=== PATIENT | female | born 1990 | race Caucasian/White ===

== ENCOUNTER 2021-11-09 09:55 | Outpatient (CLI) | payer MEDICAID | END 2021-11-09 20:06 | disposition home or self-care (01) | LOC: MUS 09:55 | PROVIDERS: ATTEND Obstetrics & Gynecology | DX: O32.1XX0 Maternal care for breech presentation, not applicable or unspecified (principal); O09.893 Supervision of other high risk pregnancies, third trimester; O24.414 Gestational diabetes mellitus in pregnancy, insulin controlled; Z3A.29 29 weeks gestation of pregnancy | CPT/HCPCS: 76805 ==

== ENCOUNTER 2021-12-18 09:50 | Inpatient (IN) | payer OTHER ==
[~2021-12-18] VITALS: Ht 170.2 cm; Wt 102.1 kg
[2021-12-18] MEDS ORDERED: ONDANSETRON 4 MG/2 ML VIAL IVP PRN (10:15)
[2021-12-18 10:27] VITALS: BP 119/72
[2021-12-18] MEDS ORDERED: FERR325E14 PO (10:50)
[2021-12-18] MEDS ORDERED: PNV91TAB8 PO (10:50)
[2021-12-18] MEDS ORDERED: OSC500 PO (10:50)
[2021-12-18] MEDS ORDERED: PANTOPRAZOLE 40 MG INJ VIAL ONE (11:58)
[2021-12-18] MEDS ORDERED: PANTOPRAZOLE 40 MG INJ VIAL IVP SCH (12:02)
[2021-12-18 13:00] LABS: BASOPHILS % (AUTO) 0.3 % (0.0-2.0); EOSINOPHILS # (AUTO) 0.1 K/uL (0-0.4); EOSINOPHILS % (AUTO) 1.5 % (0.0-4.0); HEMATOCRIT 27.9 % (36-48); HEMOGLOBIN 9.4 g/dL (12.0-16.0); LYMPHOCYTES # (AUTO) 1.3 K/uL (2.5-16.5); LYMPHOCYTES % (AUTO) 16.8 % (20.5-51.1); MEAN CORPUSCULAR HEMOGLOBIN 23 pg (27-31); MEAN CORPUSCULAR HGB CONC 34 g/dL (33-37); MEAN CORPUSCULAR VOLUME 69.7 fL (80-94); MONOCYTES # (AUTO) 0.5 K/uL (0.8-1.0); MONOCYTES % (AUTO) 6.9 % (1.7-9.3); NEUTROPHILS # (AUTO) 5.6 K/uL (1.8-7.7); NEUTROPHILS % (AUTO) 74.5 % (42.2-75.2); PLATELET COUNT (AUTO) 270 K/uL (140-450); RED BLOOD CELL COUNT(AUTO) 4.01 MIL/uL (4.20-5.40); RED CELL DISTRIBUTION WIDTH 14.9 % (11.6-13.7); WHITE BLOOD COUNT (AUTO) 7.5 K/uL (4.8-10.8)
[2021-12-18 13:07] LABS: APPEARANCE,URINE HAZY (CLEAR); BILIRUBIN,URINE 1+ (NEGATIVE); BLOOD, URINE NEGATIVE (NEGATIVE); COLOR,URINE YELLOW (YELLOW); LEUKOCYTE ESTERASE ,URINE NEGATIVE (NEGATIVE); NITRITE, URINE POSITIVE (NEGATIVE); UGLUCOSE 1+ (NEGATIVE)
[2021-12-18 13:10] LABS: ANION GAP 15.6 (8-16); CREATININE 0.7 mg/dL (0.6-1.3); POTASSIUM 3.6 mmol/L (3.5-5.1); TOTAL BILIRUBIN 0.2 mg/dL (0.0-1.0)
[2021-12-18 13:23] LABS: RBC,URINE 0-5 /HPF (0-5)
[2021-12-18] MEDS: LACTATED RINGERS 1,000 ML IV SCH (18:23)
[2021-12-18] MEDS ORDERED: BETAMETH ACET/BETAMETH NA PH 30 MG/5 ML VIAL IM ONE ×2 (19:30→19:32)
[2021-12-18] MEDS: METOCLOPRAMIDE 10 MG/2 ML INJ VIAL IVP SCH (20:00)
[2021-12-18] MEDS ORDERED: INSULIN NPH HUM/REG INSULIN HM 100 UNIT/ML 10 ML VIAL SUBQ SCH (21:00)
[2021-12-18] MEDS ORDERED: METOCLOPRAMIDE 10 MG/2 ML INJ VIAL IVP SCH (21:00)
[2021-12-18] MEDS ORDERED: NIFEdipine 10 MG CAPLF PO SCH (23:15)
[2021-12-18] MEDS ORDERED: NIFEdipine 10 MG CAPLF ONE (23:20)
[2021-12-19] MEDS: PANTOPRAZOLE 40 MG INJ VIAL IVP SCH ×2 (00:02→11:53)
[2021-12-19] MEDS: LACTATED RINGERS 1,000 ML IV SCH ×3 (01:17→15:32)
[2021-12-19] MEDS: METOCLOPRAMIDE 10 MG/2 ML INJ VIAL IVP SCH ×3 (03:58→20:07)
[2021-12-19] MEDS ORDERED: TERBUTALINE 1 MG/ML VIAL SUBQ ONE (05:10)
[2021-12-19] MEDS ORDERED: TERBUTALINE 1 MG/ML VIAL SUBQ SCH (05:10)
[2021-12-19] MEDS: NIFEdipine 10 MG CAPLF PO SCH ×3 (05:12→16:58)
[2021-12-19 12:25] LABS: HEMATOCRIT 28.4 % (36-48); HEMOGLOBIN 9.3 g/dL (12.0-16.0)
[2021-12-19 12:43] LABS: CARBON DIOXIDE 18.1 mmol/L (21-32); CREATININE 0.7 mg/dL (0.6-1.3); POTASSIUM 4.1 mmol/L (3.5-5.1); TOTAL BILIRUBIN 0.2 mg/dL (0.0-1.0)
[2021-12-19] MEDS ORDERED: BETAMETH ACET/BETAMETH NA PH 30 MG/5 ML VIAL IM ONE (19:00)
== END 2021-12-19 20:20 | disposition home or self-care (01) | DRG 566 ==
LOC: MLD 09:50 → MFCC 10:10 → OBSVTOIN 10:46
PROVIDERS: ADMIT Obstetrics & Gynecology; ATTEND Obstetrics & Gynecology
DX: O99.613 Diseases of the digestive system complicating pregnancy, third trimester (principal); K92.0 Hematemesis; O24.414 Gestational diabetes mellitus in pregnancy, insulin controlled; Z20.822 Contact with and (suspected) exposure to COVID-19; Z83.3 Family history of diabetes mellitus; Z3A.34 34 weeks gestation of pregnancy
CPT/HCPCS: 36415; 76817; 80053; 81001; 82948; 85018; 85025; 87086; C9113; J0702; J1815; J2765; J3105; J7120; Q0092

== ENCOUNTER 2022-11-05 11:15 | Observation (INO) | payer OTHER ==
[~2022-11-05] VITALS: Ht 170.2 cm; Wt 103.4 kg
[~2022-11-05 11:15] MED LIST: FERR325E14 PO; OSC500 PO; PNV91TAB8 PO
[2022-11-05] MEDS ORDERED: LACTATED RINGERS 1,000 ML IV SCH (11:40)
[2022-11-05] MEDS ORDERED: MAG SULF 20 GM/H2O PREMIX DRIP 500 ML IV PRN (11:40)
[2022-11-05] MEDS ORDERED: MAG SULF 2000 MG/WATER PREMIX 100 ML IV SCH (11:40)
[2022-11-05 12:05] LABS: BASOPHILS % (AUTO) 0.4 % (0.0-2.0); EOSINOPHILS % (AUTO) 0.6 % (0.0-4.0); HEMATOCRIT 31.2 % (36-48); LYMPHOCYTES # (AUTO) 1.3 K/uL (2.5-16.5); LYMPHOCYTES % (AUTO) 18.7 % (20.5-51.1); MEAN CORPUSCULAR HEMOGLOBIN 22 pg (27-31); MEAN CORPUSCULAR HGB CONC 32 g/dL (33-37); MEAN CORPUSCULAR VOLUME 67.7 fL (80-94); MONOCYTES # (AUTO) 0.5 K/uL (0.8-1.0); MONOCYTES % (AUTO) 7.6 % (1.7-9.3); NEUTROPHILS # (AUTO) 4.9 K/uL (1.8-7.7); NEUTROPHILS % (AUTO) 72.7 % (42.2-75.2); PLATELET COUNT (AUTO) 264 K/uL (140-450); RED BLOOD CELL COUNT(AUTO) 4.61 MIL/uL (4.20-5.40); RED CELL DISTRIBUTION WIDTH 16.2 % (11.6-13.7); WHITE BLOOD COUNT (AUTO) 6.8 K/uL (4.8-10.8)
[2022-11-05 12:08] LABS: BILIRUBIN,URINE 1+ (NEGATIVE); BLOOD, URINE 3+ (NEGATIVE); LEUKOCYTE ESTERASE ,URINE 2+ (NEGATIVE); NITRITE, URINE NEGATIVE (NEGATIVE); PROTEIN,URINE 1+ (NEGATIVE); UGLUCOSE TRACE (NEGATIVE)
[2022-11-05 12:13] LABS: APPEARANCE,URINE CLOUDY (CLEAR)
[2022-11-05 12:14] LABS: COLOR,URINE AMBER (YELLOW)
[2022-11-05] MEDS ORDERED: BETAMETH ACET/BETAMETH NA PH 30 MG/5 ML VIAL IM SCH (12:30)
[2022-11-05 12:31] LABS: MAGNESIUM 1.5 mg/dL (1.8-2.4)
[2022-11-05 12:34] LABS: ALBUMIN 2.2 g/dL (3.4-5.0); ANION GAP 16.7 (8-16); CALCIUM 8.3 mg/dL (8.5-10.1); CARBON DIOXIDE 20.7 mmol/L (21-32); CREATININE 0.8 mg/dL (0.6-1.3); POTASSIUM 3.4 mmol/L (3.5-5.1); TOTAL BILIRUBIN 0.3 mg/dL (0.0-1.0); TOTAL PROTEIN, SERUM 6.7 g/dL (6.4-8.2); URIC ACID 4.7 mg/dL (2.6-7.2)
[2022-11-05 12:37] LABS: ICTOTEST NEGATIVE (NEGATIVE)
[2022-11-05 12:38] LABS: BACTERIA,URINE FEW /HPF (None Seen); RBC,URINE 11-20 (MOD) /HPF (0-5)
[2022-11-05 12:39] LABS: SQUAMOUS EPITHELIAL CELL,UR 4-10 (MOD) /LPF (0-3 (FEW))
[2022-11-05 12:46] VITALS: BP 127/75; PULSE 96; RESP 18; TEMP 98.1
[2022-11-05 12:48] LABS: URINE TOTAL PROTEIN 177.9 mg/dL (0-12)
[2022-11-05 12:49] LABS: URINE TPRO CREAT RATIO 0.5 (0-0.20)
[2022-11-05 13:07] LABS: INR 0.9 (0.8-1.2); PARTIAL THROMBOPLASTIN TIME 25.2 secs (22-35.6); PROTHROMBIN TIME 9.5 secs (10.8-13.4)
== END 2022-11-05 19:40 | disposition home or self-care (01) ==
LOC: MLD 11:15
PROVIDERS: ADMIT Obstetrics & Gynecology; ATTEND Obstetrics & Gynecology
DX: O46.93 Antepartum hemorrhage, unspecified, third trimester (principal); Z20.822 Contact with and (suspected) exposure to COVID-19; O60.03 Preterm labor without delivery, third trimester; Z3A.34 34 weeks gestation of pregnancy
CPT/HCPCS: 36415; 76805; 76817; 80053; 81001; 82570; 83735; 84550; 85025; 85384; 85610; 85730; 86886; 86900; 86901; 87086; 87426; 96365; 96366; 96372; G0378; J0702; J3475; Q0092

== ENCOUNTER 2022-11-06 12:42 | Observation (INO) | payer OTHER ==
[~2022-11-06] VITALS: Ht 170.2 cm; Wt 103.4 kg
[2022-11-06] MEDS ORDERED: BETAMETH ACET/BETAMETH NA PH 30 MG/5 ML VIAL IM ONE (13:00)
[2022-11-06 13:07] VITALS: BP 125/72; PULSE 95; RESP 18; TEMP 97.8
== END 2022-11-06 13:37 | disposition home or self-care (01) ==
LOC: MLD 12:42
PROVIDERS: ADMIT Obstetrics & Gynecology; ATTEND Obstetrics & Gynecology
DX: O26.893 Other specified pregnancy related conditions, third trimester (principal); R10.9 Unspecified abdominal pain; O99.891 Other specified diseases and conditions complicating pregnancy; M54.9 Dorsalgia, unspecified; Z3A.35 35 weeks gestation of pregnancy
CPT/HCPCS: 96372; G0378; J0702; 59025; 81000

== ENCOUNTER 2022-11-25 10:09 | Inpatient (IN) | payer OTHER ==
[~2022-11-25] VITALS: Ht 170.2 cm; Wt 104.3 kg
[2022-11-25] MEDS ORDERED: METHYLERGONOVINE 0.2 MG/ML AMP IM PRN ×3 (10:20→17:35)
[2022-11-25] MEDS ORDERED: CITRIC ACID/SODIUM CITRATE 30 ML UDC PO SCH (10:20)
[2022-11-25] MEDS ORDERED: CARBOPROST 250 MCG/ML AMP IM PRN ×2 (10:20→17:35)
[2022-11-25 10:47] LABS: BASOPHILS % (AUTO) 0.7 % (0.0-2.0); EOSINOPHILS % (AUTO) 0.2 % (0.0-4.0); HEMATOCRIT 33.9 % (36-48); HEMOGLOBIN 10.9 g/dL (12.0-16.0); LYMPHOCYTES # (AUTO) 1.4 K/uL (2.5-16.5); LYMPHOCYTES % (AUTO) 23.2 % (20.5-51.1); MEAN CORPUSCULAR HEMOGLOBIN 21 pg (27-31); MEAN CORPUSCULAR HGB CONC 32 g/dL (33-37); MEAN CORPUSCULAR VOLUME 66.7 fL (80-94); MONOCYTES # (AUTO) 0.4 K/uL (0.8-1.0); MONOCYTES % (AUTO) 6.6 % (1.7-9.3); NEUTROPHILS # (AUTO) 4.1 K/uL (1.8-7.7); NEUTROPHILS % (AUTO) 69.3 % (42.2-75.2); PLATELET COUNT (AUTO) 275 K/uL (140-450); RED BLOOD CELL COUNT(AUTO) 5.08 MIL/uL (4.20-5.40); RED CELL DISTRIBUTION WIDTH 17.5 % (11.6-13.7)
[2022-11-25 10:53] LABS: APPEARANCE,URINE CLEAR (CLEAR); BILIRUBIN,URINE NEGATIVE (NEGATIVE); BLOOD, URINE NEGATIVE (NEGATIVE); COLOR,URINE YELLOW (YELLOW); LEUKOCYTE ESTERASE ,URINE NEGATIVE (NEGATIVE); NITRITE, URINE NEGATIVE (NEGATIVE); PROTEIN,URINE 1+ (NEGATIVE); UGLUCOSE 3+ (NEGATIVE); UROBILINOGEN,URINE 0.2 EU/dL (0.2 - 1)
[2022-11-25] MEDS: LACTATED RINGERS 1,000 ML IV SCH ×2 (11:01→13:16)
[2022-11-25 11:07] LABS: INR 0.87 (0.8-1.2); PARTIAL THROMBOPLASTIN TIME 25.5 secs (22-35.6); PROTHROMBIN TIME 9.2 secs (10.8-13.4)
[2022-11-25 11:09] LABS: ALBUMIN 2.3 g/dL (3.4-5.0); ANION GAP 14.4 (8-16); CALCIUM 9.3 mg/dL (8.5-10.1); CARBON DIOXIDE 22.7 mmol/L (21-32); CREATININE 0.7 mg/dL (0.6-1.3); POTASSIUM 4.1 mmol/L (3.5-5.1); TOTAL BILIRUBIN 0.3 mg/dL (0.0-1.0); TOTAL PROTEIN, SERUM 7.4 g/dL (6.4-8.2)
[2022-11-25 11:19] LABS: AMPHETAMINE, URINE NEGATIVE ng/ml (NEG <=1000); BARBITURATE, URINE NEGATIVE ng/ml (NEG <=200); BENZODIAZEPINE, URINE NEGATIVE ng/mL (NEG <=200); CANNABINOID, URINE NEGATIVE ng/mL (NEG <=50); COCAINE, URINE NEGATIVE ng/mL (NEG <=300); OPIATE, URINE NEGATIVE ng/mL (NEG <=2000); PHENCYCLIDINE SCREEN,URINE NEGATIVE ng/mL (NEG <=25)
[2022-11-25 11:28] LABS: RBC,URINE 0-5 /HPF (0-5)
[2022-11-25 11:29] LABS: BACTERIA,URINE FEW /HPF (None Seen); MUCUS,URINE None Seen /LPF (None Seen); SQUAMOUS EPITHELIAL CELL,UR 4-10 (MOD) /LPF (0-3 (FEW)); TRICHOMONAS,URINE None Seen /HPF (None Seen); WBC,URINE 0-5 /HPF (0-5); WHITE BLOOD CELL CASTS,URINE None Seen /LPF (None Seen); YEAST,URINE None Seen /HPF (None Seen)
[2022-11-25] MEDS ORDERED: ceFAZolin 2,000 MG VIAL ONE (12:52)
[2022-11-25] MEDS ORDERED: INSULIN REGULAR, HUMAN 100 UNIT/ML VIAL SUBQ ONE (15:40)
[2022-11-25] MEDS ORDERED: MORPHINE PRES FREE 10 MG/10 ML AMP IV ONE (16:30)
[2022-11-25] MEDS ORDERED: ONDANSETRON 4 MG/2 ML VIAL IVP ONE (16:33)
[2022-11-25] MEDS ORDERED: KETOROLAC 30 MG/ML VIAL IVP ONE (16:33)
[2022-11-25] MEDS ORDERED: ONDANSETRON 4 MG/2 ML VIAL IVP PRN ×3 (17:20→17:35)
[2022-11-25] MEDS ORDERED: NALBUPHINE 10 MG/ML AMP IVP PRN ×3 (17:20→17:35)
[2022-11-25] MEDS ORDERED: diphenhydrAMINE 50 MG/ML VIAL IVP PRN ×3 (17:20→17:35)
[2022-11-25] MEDS ORDERED: NALOXONE 0.4 MG/ML VIAL IVP PRN ×6 (17:20→17:35)
[2022-11-25] MEDS ORDERED: METOCLOPRAMIDE 10 MG/2 ML INJ VIAL IVP PRN (17:25)
[2022-11-25] MEDS ORDERED: oxyCODONE/APAP 5/325 MG 1 TAB TAB PO PRN (17:35)
[2022-11-25] MEDS ORDERED: OXYTOCIN 10 UNITS in LACTATED RINGERS 1,000 ML IV SCH (17:35)
[2022-11-25] MEDS ORDERED: LACTATED RINGERS 1,000 ML IV SCH (17:35)
[2022-11-25] MEDS ORDERED: HYDROmorphone 1 MG/ML AMP IVP PRN (17:35)
[2022-11-25] MEDS ORDERED: OXYTOCIN 20 UNITS in LACTATED RINGERS 1,000 ML IV SCH ×4 (17:35)
[2022-11-25] MEDS ORDERED: GENTAMICIN PER PHARMACY MC PRN (17:35)
[2022-11-25] MEDS ORDERED: MEASLES, MUMPS, AND RUBELLA 1 VIAL SQVAC ONE (17:35)
[2022-11-25] MEDS ORDERED: MEPERIDINE 25 MG/ML SYR IVP PRN (17:35)
[2022-11-25] MEDS ORDERED: OXYTOCIN 20 UNITS/LR PREMIX 1,000 ML IV ONE (17:40)
[2022-11-25] MEDS ORDERED: IBUPROFEN 600 MG TAB PO SCH (18:00)
[2022-11-25] MEDS ORDERED: KETOROLAC 30 MG/ML VIAL IVP SCH (18:00)
[2022-11-25] MEDS ORDERED: KETOROLAC 30 MG/ML VIAL IM/IVP SCH (18:00)
[2022-11-25] MEDS ORDERED: ROPIVACAINE 0.2%/NS PREMIX 200 ML EPI ONE (18:25)
[2022-11-25] MEDS: GENTAMICIN IV SCH (19:44)
[2022-11-25] MEDS: DEXTROSE 5% IV SCH (19:44)
[2022-11-26] MEDS: KETOROLAC 30 MG/ML VIAL IM/IVP SCH ×2 (00:12→06:05)
[2022-11-26] MEDS ORDERED: OXYTOCIN 20 UNITS/LR PREMIX 1,000 ML IV ONE ×2 (02:13→08:57)
[2022-11-26] MEDS: DEXTROSE 5% IV SCH ×2 (03:03→11:03)
[2022-11-26] MEDS: GENTAMICIN IV SCH ×2 (03:03→11:03)
[2022-11-26 07:24] LABS: BASOPHILS % (AUTO) 0.2 % (0.0-2.0); EOSINOPHILS % (AUTO) 0.4 % (0.0-4.0); HEMATOCRIT 27.5 % (36-48); HEMOGLOBIN 8.8 g/dL (12.0-16.0); LYMPHOCYTES # (AUTO) 1.6 K/uL (2.5-16.5); LYMPHOCYTES % (AUTO) 19.7 % (20.5-51.1); MEAN CORPUSCULAR HEMOGLOBIN 22 pg (27-31); MEAN CORPUSCULAR HGB CONC 32 g/dL (33-37); MEAN CORPUSCULAR VOLUME 67.2 fL (80-94); MONOCYTES # (AUTO) 0.5 K/uL (0.8-1.0); NEUTROPHILS # (AUTO) 5.9 K/uL (1.8-7.7); NEUTROPHILS % (AUTO) 73.7 % (42.2-75.2); PLATELET COUNT (AUTO) 210 K/uL (140-450); RED BLOOD CELL COUNT(AUTO) 4.09 MIL/uL (4.20-5.40); RED CELL DISTRIBUTION WIDTH 17.1 % (11.6-13.7)
[2022-11-26] MEDS ORDERED: bisacodyL 10 MG SUPP RC SCH (09:00)
[2022-11-26] MEDS: bisacodyL 10 MG SUPP RC SCH (09:00)
[2022-11-26 10:07] LABS: HEPATITIS B SURFACE ANTIGEN Negative (Negative)
[2022-11-26] MEDS ORDERED: IBUPROFEN 600 MG TAB PO PRN (15:05)
[2022-11-26] MEDS: SIMETHICONE 80 MG TAB.CHEW PO PRN (17:33)
[2022-11-26] MEDS ORDERED: OXYTOCIN 20 UNITS in LACTATED RINGERS 1,000 ML IV SCH (17:35)
[2022-11-26 20:05] LABS: RUBELLA AB IGG <0.90 index (<0.9 - 0.99)
[2022-11-27] MEDS ORDERED: CAMERA MC ONE (04:16)
[2022-11-27] MEDS: SIMETHICONE 80 MG TAB.CHEW PO PRN (07:51)
[2022-11-27] MEDS: bisacodyL 10 MG SUPP RC SCH ×2 (09:00→09:33)
== END 2022-11-27 13:55 | disposition home or self-care (01) | DRG 540 ==
LOC: MLD 10:09 → MFCC 19:29
PROVIDERS: ADMIT Obstetrics & Gynecology; ATTEND Obstetrics & Gynecology
PROC: 10D00Z1 Extraction of Products of Conception, Low, Open Approach (ICD-10-PCS; principal; 2022-11-25 13:30)
DX: O34.211 Maternal care for low transverse scar from previous cesarean delivery (principal); O24.429 Gestational diabetes mellitus in childbirth, unspecified control; Z20.822 Contact with and (suspected) exposure to COVID-19; Z37.0 Single live birth; Z3A.38 38 weeks gestation of pregnancy
CPT/HCPCS: 36415; 80053; 80170; 80305; 81001; 82948; 85025; 85610; 85730; 86592; 86762; 86886; 86900; 86901; 87081; 87340; J0690; J1580; J1815; J1885; J2270; J2300; J2405; J2590; J7060; J7120